=== PATIENT | female | born 1995 | race Caucasian/White ===

== ENCOUNTER 2016-12-01 17:16 | Inpatient (IN) | payer OTHER ==
[2016-12-01 17:41] LABS: URINE SOURCE CLEAN CATCH
[2016-12-01 17:55] LABS: BILIRUBIN URINE NEGATIVE (NEGATIVE); BLOOD URINE 4+ (NEGATIVE); CLARITY CLEAR (CLEAR); COLOR YELLOW; GLUCOSE URINE NEGATIVE (NEGATIVE); LEUKOCYTES URINE 2+ (NEGATIVE); NITRITE URINE NEGATIVE (NEGATIVE); PH URINE 6.5; PROTEIN URINE TRACE mg/dL (NEGATIVE); UROBILINOGEN URINE NORMAL
[2016-12-01 18:10] LABS: URINE CULTURE PL NEEDED? YES; URINE EPITHELIAL CELLS <10 /HPF (<10); URINE RBC TNTC /HPF (<10)
[2016-12-01] MEDS ORDERED: NS 1,000 ML IV ONE (18:48)
[2016-12-01] MEDS ORDERED: TYLENOL ONE (20:01)
[2016-12-01 20:04] LABS: BASO% 0.1 % (0.0-0.8); EOS# 0.02 X1000 (0.0-0.7); EOS% 0.1 % (0.0-10.0); HEMATOCRIT 39.1 % (37.0-47.0); HEMOGLOBIN 12.9 g/dL (12.0-16.0); IMM GRAN# 0.14 X1000 (0.0-0.04); IMM GRAN% 0.6 % (0.0-0.5); LYMPH# 1.25 X1000 (1.2-3.4); LYMPH% 5.4 % (20.5-51.1); MANUAL DIFF NEEDED? YES; MCH 28.4 PG (27-31); MCV 85.9 FL (81-99); MONO# 1.31 X1000 (0.11-0.59); MONO% 5.7 % (1.7-9.3); MPV 9.6 FL (7.4-10.4); NEUT% 88.1 % (42.2-75.2); PLT 335 X1000 (130-400); RBC 4.55 XMIL (4.2-5.4)
[2016-12-01 20:16] LABS: BANDS 9 % (0-1); LYMPHS 6 % (21-51); MONO 6 % (1-9)
[2016-12-01] MEDS ORDERED: ZOSYN 3.375 GM/NS 50 ML IV ONE (20:18)
[2016-12-01] MEDS ORDERED: VANCOMYCIN 1 GM/NS 250 ML IV ONE (20:18)
[2016-12-01] MEDS ORDERED: TYLENOL PO ONE (20:26)
--- NOTE | 2016-12-01 20:49 | PROVIDER DOCUMENTATION ---
HPI-Abdominal Pain/GI Problem - General Source: patient - History of Present Illness-ABD Nature of Presenting Problems: 21 Y/O F presents to ED with Post-op Complaint. Pt states she had a on Wednesday, woke up this morning with Abdominal cramping, and at home had a fever of 104 took 2 Tylenol and brought the fever down to 102. Pt took baby to pediatric appt today and Stated that she didn't feel very well and took her temp and her fever was 103. Abdominal Pain Onset Location: reports: generalized abdomen Pain Radiation: reports: no radiation Quality of Pain: reports: cramping Severity in ED: reports: severe Onset/Duration: reports: this morning Timing: reports: still present Activities at Onset: reports: none Associated Symptoms: reports: fever/chills. denies: diarrhea, nausea, vomiting <Vy Quinonez - Last Filed: 12/01/16 20:43> - History of Present Illness-ABD Nature of Presenting Problems: This pt presents today c complaints of fever and abdominal pain. She reports that she had a on Wednesday and this morning woke up c a fever of 105. She took tylenol and then went to her child's pediatric appointment. They actually rechecked her temp there and it was 102. She is complaining of pelvic pain and fatigue. Abdominal Pain Onset Location: reports: suprapubic Quality of Pain: reports: aching Severity in ED: reports: moderate Onset/Duration: reports: this morning Timing: reports: still present Modifying Factors: improves with: palpation Associated Symptoms: reports: fatigue, fever/chills, rash (pelvic) Last BM: 24 hours ago Dark Stools Present?: reports: none noticed Rectal Bleeding: reports: none Rectal Pain: reports: none Bruising or Bleeding Gums?: No Similar Symptoms Previously?: No Recently seen or treated by another doctor?: Yes () <Danny Garcia - Last Filed: 12/01/16 22:18> - General Chief Complaint: Post Op Complaint Stated Complaint: POST OP /11-25-16/FEVER Time Seen by Provider: 12/01/16 18:43 Allergies/Adverse Reactions: Patient Allergies Allergy/AdvReac Type Severity Reaction Status Date / Time No Known Allergies Allergy Verified 11/25/16 11:57 Home Medications: Home Medication List Medication Instructions Recorded Confirmed Last Taken Type Multivitamin [Gummi Bear 2 tab PO DAILY 11/25/16 11/25/16 11/24/16 22:00 History Multivitamin] Ranitidine HCl [Zantac] 1 tab PO DIRECTED 11/25/16 11/25/16 11/25/16 07:00 History Valacyclovir HCl [Valtrex] 1,000 mg PO DAILY 11/25/16 11/25/16 11/25/16 07:00 History Ibuprofen [Motrin] 800 mg PO Q8H PRN PRN #30 tablet 11/28/16 Unknown Rx Iron,Fm,Ps/Folic/B,C18/L.casei 1 cap PO BID #60 capsule 11/28/16 Unknown Rx [Fusion Plus Capsule] Oxycodone/APAP 10 mg/325 mg 1 each PO Q3-4H PRN PRN #60 tablet 11/28/16 Unknown Rx [Percocet-10] Sennosides/Docusate Sodium 1 each PO QHS #30 tablet 11/28/16 Unknown Rx [Pericolace] Review of Systems - Adult - REVIEW OF SYSTEMS - ADULT Constitutional: reports: chills, fever Eyes: reports: no symptoms reported Ears, Nose, Mouth & Throat: reports: no symptoms reported Cardiovascular: reports: no symptoms reported Respiratory: reports: no symptoms reported Gastrointestinal: reports: abdominal pain. denies: diarrhea, nausea, vomiting Genitourinary: reports: no symptoms reported Musculoskeletal: reports: no symptoms reported Integumentary: reports: no symptoms reported Neurological: reports: no symptoms reported Psychiatric: reports: no symptoms reported Endocrine: reports: no symptoms reported Hematologic/Lymphatic: reports: no symptoms reported Allergic/Immunologic: reports: no symptoms reported All Other Systems: Reviewed and Negative <Vy Quinonez - Last Filed: 12/01/16 20:43> - REVIEW OF SYSTEMS - ADULT Constitutional: reports: chills, fever, fatique. denies: night sweats, weight gain Eyes: reports: no symptoms reported. denies: discharge, dry eyes Ears, Nose, Mouth & Throat: reports: no symptoms reported. denies: ear discharge, ear pain Cardiovascular: reports: no symptoms reported. denies: chest pain, edema Respiratory: reports: no symptoms reported. denies: chronic cough, cough Gastrointestinal: reports: abdominal pain. denies: difficulty swallowing, nausea Genitourinary: reports: see HPI. denies: frequent UTI's, hematuria Musculoskeletal: reports: no symptoms reported. denies: bone pain, back pain Integumentary: reports: see HPI. denies: mole changes, nail changes Neurological: reports: no symptoms reported. denies: ataxia, dizziness/vertigo Psychiatric: reports: no symptoms reported. denies: anxiety, anti-depressant use Endocrine: reports: no symptoms reported Hematologic/Lymphatic: reports: no symptoms reported Allergic/Immunologic: reports: no symptoms reported All Other Systems: Reviewed and Negative <Danny Garcia - Last Filed: 12/01/16 22:18> Past History - Adult - PAST MEDICAL HISTORY-ADULT Review of Records: reports: Old Records Reviewed, Nursing Assessment Review, Medications Reviewed, Social history reviewed & non-contributory. - SOCIAL HISTORY Smoking: quit greater than 1 year Substance Use: none/never Alcohol Use Frequency: never Living Situation: family <[place] - Last Filed: 12/01/16 20:43> - PAST MEDICAL HISTORY-ADULT Review of Records: reports: Old Records Reviewed, Nursing Assessment Review, Medications Reviewed, Social history reviewed & non-contributory. Major Childhood Illnesses: reports: denies history Cardiovascular: reports: denies history Respiratory: reports: denies history Gastrointestinal: reports: denies history Obstetrical/Gynecological: reports: denies history Genitourinary: reports: denies history Musculoskeletal: reports: denies history Neurological: reports: denies history Endocrine/Immune: reports: denies history Other Conditions: reports: denies history <Danny Garcia - Last Filed: 12/01/16 22:18> Physical Exam-General - PHYSICAL EXAM-ADULT Initial Vital Signs Reviewed: Yes - CONSTITUTIONAL General Appearance: alert, moderate distress. negative: appears well - EYES Eyes: PERRL/EOMI, pink conjunctivae, fundi clear, no AV nicking - HEAD, EARS, NOSE, MOUTH & THROAT HENMT: normocephalic/atraumatic, moist mucous membranes, normal ENT inspection, TMs normal, pharynx normal - NECK Neck: non-tender, supple - RESPIRATORY Respiratory: chest non-tender, lungs clear, normal breath sounds - CARDIOVASCULAR Cardiovascular: tachycardia, other (hypotensive) - GASTROINTESTINAL (ABDOMEN) Abdominal Exam: tenderness (Abdominal wall) - LYMPHATIC Lymphatic: no adenopathy - MUSCULOSKELETAL Back Exam: normal inspection, no CVA tenderness, no vertebral tenderness Extremity: normal range of motion, non-tender - SKIN Integumentary: warm/dry. negative: normal color - NEUROLOGIC Neurologic: it risk advisor II-XII nml as tested - PSYCHIATRIC Psych/Mental Status: normal mood/affect, normal thought content, normal thought process, oriented x 3 <Vy Quinonez - Last Filed: 12/01/16 20:43> - PHYSICAL EXAM-ADULT Initial Vital Signs Reviewed: Yes - CONSTITUTIONAL General Appearance: alert, mild distress - EYES Eyes: PERRL/EOMI, pink conjunctivae - HEAD, EARS, NOSE, MOUTH & THROAT HENMT: normocephalic/atraumatic, moist mucous membranes, normal ENT inspection - NECK Neck: non-tender, full range of motion - RESPIRATORY Respiratory: chest non-tender, lungs clear, normal breath sounds - CARDIOVASCULAR Cardiovascular: normal peripheral pulses, tachycardia - GASTROINTESTINAL (ABDOMEN) Abdominal Exam: normal bowel sounds, soft, tenderness (suprapubic) - GENITOURINARY Female Genitalia/Pelvic Exam: other (cellulitis) - MUSCULOSKELETAL Back Exam: normal inspection Extremity: normal range of motion - SKIN Integumentary: normal turgor, warm/dry, pallor - NEUROLOGIC Neurologic: grossly normal, no motor/sensory deficits - PSYCHIATRIC Psych/Mental Status: normal mood/affect, normal thought content, normal thought process, oriented x 3 <Danny Garcia - Last Filed: 12/01/16 22:18> Progress - PLAN OF CARE/RESULTS Progress/Plan/Lab Results: Laboratory Tests 12/01/16 12/01/16 12/01/16 17:30 18:45 18:45 WBC 23.12 H RBC 4.55 Hgb 12.9 Hct 39.1 MCV 85.9 MCH 28.4 MCHC 33.0 RDW Std Deviation 18.2 H Plt Count 335 MPV 9.6 Immature Gran % (Auto) 0.6 H Neut % (Auto) 88.1 H Lymph % (Auto) 5.4 L [place] % (Auto) 5.7 Eos % (Auto) 0.1 Baso % (Auto) 0.1 Immature Gran # (Auto) 0.14 H Neut # (Auto) 20.38 H Lymph # (Auto) 1.25 [place] # (Auto) 1.31 H Eos # (Auto) 0.02 Baso # (Auto) 0.02 Segmented Neutrophils 79 H Band Neutrophils 9 H Lymphocytes 6 L Monocytes 6 PT INR APTT (Factor Assay) Sodium Potassium Chloride Carbon Dioxide Anion Gap BUN Creatinine Estimated GFR/1.73 m2 BUN/Creatinine Ratio Glucose Calculated Osmolality Calcium Magnesium Total Bilirubin AST ALT Alkaline Phosphatase Total Protein Albumin Globulin Albumin/Globulin Ratio Plasma Lactate 1.5 Urine Source CLEAN CATCH Urine Color YELLOW Urine Clarity CLEAR Urine pH 6.5 Ur Specific [place] 1.010 Urine Protein TRACE A Urine Ketones TRACE Urine Blood 4+ Urine Nitrite NEGATIVE Urine Bilirubin NEGATIVE Urine Urobilinogen NORMAL Urine Microscopic RBC TNTC A Urine WBC 2+ A Urine Microscopic WBC 10-20 A Ur Epithelial Cells <10 Urine Bacteria NEGATIVE Urine Glucose NEGATIVE 12/01/16 12/01/16 12/01/16 18:48 19:00 19:00 WBC RBC Hgb Hct MCV MCH MCHC RDW Std Deviation Plt Count MPV Immature Gran % (Auto) Neut % (Auto) Lymph % (Auto) [place] % (Auto) Eos % (Auto) Baso % (Auto) Immature Gran # (Auto) Neut # (Auto) Lymph # (Auto) [place] # (Auto) Eos # (Auto) Baso # (Auto) Segmented Neutrophils Band Neutrophils Lymphocytes Monocytes PT 13.9 INR 1.04 APTT (Factor Assay) 34.3 Sodium 134 L Potassium 3.5 Chloride 95 L Carbon Dioxide 21 L Anion Gap 18 BUN 9 Creatinine 0.7 Estimated GFR/1.73 m2 > 60 BUN/Creatinine Ratio 13 Glucose 91 Calculated Osmolality 267 Calcium 9.2 Magnesium 1.9 Total Bilirubin 0.50 AST 19 ALT 20 Alkaline Phosphatase 204 H Total Protein 7.6 Albumin 3.6 Globulin 4.0 Albumin/Globulin Ratio 1.0 Plasma Lactate Urine Source Urine Color Urine Clarity Urine pH Ur Specific [place] Urine Protein Urine Ketones Urine Blood Urine Nitrite Urine Bilirubin Urine Urobilinogen Urine Microscopic RBC Urine WBC Urine Microscopic WBC Ur Epithelial Cells Urine Bacteria Urine Glucose Orders Category Date Time Status Orthostatic Vital Signs NOW Care 12/01/16 18:48 Active Saline Loc NOW Care 12/01/16 18:[address] ABD/PELVIS W/ IV CONT ONLY [CT] Stat Exams 12/01/16 20:18 Taken BLOOD CULTURE [BLDCUL] Stat Lab 12/01/16 20:27 Ordered CBC WITH DIFF [HEME] Stat Lab 12/01/16 18:45 Completed COMPREHENSIVE METABOLIC PANEL [CHEM] Stat Lab 12/01/16 18:48 Completed LACTATE, PLASMA [CHEM] Stat Lab 12/01/16 18:45 Completed MAGNESIUM [CHEM] Stat Lab 12/01/16 19:00 Completed [address]IME WITH INR PL [COAG] Stat Lab 12/01/16 19:[address] [COAG] Stat Lab 12/01/16 19:00 Completed UA [URINALYSIS PL W/POSS RFLX CULT] [URINALYSIS] Stat Lab 12/01/16 17:30 Completed URINE CULTURE [RM] Routine Lab 12/01/16 18:10 Ordered 0.9% Sodium Chloride Inj [Ns] 1,000 ml Med 12/01/16 22:15 Active IV 125 mls/hr 0.9% Sodium Chloride Inj [Ns] 1,000 ml Med 12/01/16 18:48 Discontinued IV 999 mls/hr Acetaminophen [Tylenol] Med 12/01/16 20:01 Discontinued 1,000 mg .ROUTE .STK-MED ONE Acetaminophen [Tylenol] Med 12/01/16 20:26 Discontinued 1,000 mg PO NOW ONE Ibuprofen [Motrin] Med 12/01/16 21:30 Discontinued 800 mg PO NOW ONE Piperacil/Tazobact 3.375 gm/Ns [Zosyn 3.375 gm/Ns] 50 Med 12/01/16 20:18 Discontinued ml IV NOW Vancomycin 1 gm/Ns 250 ml Med 12/01/16 20:18 Discontinued IV NOW Vital Signs Temp Pulse Pulse Pulse Pulse Resp BP 12/01/16 21:30 101.8 F H 124 H 20 114/71 12/01/16 20:30 153 H 152 H 138 H 12/01/16 20:25 101.8 F H 128 H 20 98/56 12/01/16 17:21 97.5 F L 130 H 20 094/050 BP BP BP Pulse Ox 12/01/16 21:30 96 12/01/16 20:30 107/70 95/65 111/76 12/01/16 20:25 100 12/01/16 17:21 98 No Known Allergies Allergy (Verified 11/25/16 11:57) Multivitamin [Gummi Bear Multivitamin] 2 tab PO DAILY 11/25/16 Ranitidine HCl [Zantac] 1 tab PO DIRECTED 11/25/16 Valacyclovir HCl [Valtrex] 1,000 mg PO DAILY 11/25/16 Ibuprofen [Motrin] 800 mg PO Q8H PRN PRN #30 tablet 11/28/16 Iron,Fm,Ps/Folic/B,C18/L.casei [Fusion Plus Capsule] 1 cap PO BID #60 capsule Oxycodone/APAP 10 mg/325 mg [Percocet-10] 1 each PO Q3-4H PRN PRN #60 tablet Sennosides/Docusate Sodium [Pericolace] 1 each PO QHS #30 tablet 11/28/16 Laboratory 12/01/16 12/01/16 12/01/16 19:00 19:00 18:48 WBC RBC Hgb Hct MCV MCH MCHC RDW Std Deviation Plt Count MPV Immature Gran % (Auto) Neut % (Auto) Lymph % (Auto) [place] % (Auto) Eos % (Auto) Baso % (Auto) Immature Gran # (Auto) Neut # (Auto) Lymph # (Auto) [place] # (Auto) Eos # (Auto) Baso # (Auto) Segmented Neutrophils Band Neutrophils Lymphocytes Monocytes PT 13.9 INR 1.04 APTT (Factor Assay) 34.3 Sodium 134 L Potassium 3.5 Chloride 95 L Carbon Dioxide 21 L Anion Gap 18 BUN 9 Creatinine 0.7 Estimated GFR/1.73 m2 > 60 BUN/Creatinine Ratio 13 Glucose 91 Calculated Osmolality 267 Calcium 9.2 Magnesium 1.9 Total Bilirubin 0.50 AST 19 ALT 20 Alkaline Phosphatase 204 H Total Protein 7.6 Albumin 3.6 Globulin 4.0 Albumin/Globulin Ratio 1.0 Plasma Lactate Urine Source Urine Color Urine Clarity Urine pH Ur Specific [place] Urine Protein Urine Ketones Urine Blood Urine Nitrite Urine Bilirubin Urine Urobilinogen Urine Microscopic RBC Urine WBC Urine Microscopic WBC Ur Epithelial Cells Urine Bacteria Urine Glucose 12/01/16 12/01/16 12/01/16 18:45 18:45 17:30 WBC 23.12 H RBC 4.55 Hgb 12.9 Hct 39.1 MCV 85.9 MCH 28.4 MCHC 33.0 RDW Std Deviation 18.2 H Plt Count 335 MPV 9.6 Immature Gran % (Auto) 0.6 H Neut % (Auto) 88.1 H Lymph % (Auto) 5.4 L [place] % (Auto) 5.7 Eos % (Auto) 0.1 Baso % (Auto) 0.1 Immature Gran # (Auto) 0.14 H Neut # (Auto) 20.38 H Lymph # (Auto) 1.25 [place] # (Auto) 1.31 H Eos # (Auto) 0.02 Baso # (Auto) 0.02 Segmented Neutrophils 79 H Band Neutrophils 9 H Lymphocytes 6 L Monocytes 6 PT INR APTT (Factor Assay) Sodium Potassium Chloride Carbon Dioxide Anion Gap BUN Creatinine Estimated GFR/1.73 m2 BUN/Creatinine Ratio Glucose Calculated Osmolality Calcium Magnesium Total Bilirubin AST ALT Alkaline Phosphatase Total Protein Albumin Globulin Albumin/Globulin Ratio Plasma Lactate 1.5 Urine Source CLEAN CATCH Urine Color YELLOW Urine Clarity CLEAR Urine pH 6.5 Ur Specific [place] 1.010 Urine Protein TRACE A Urine Ketones TRACE Urine Blood 4+ Urine Nitrite NEGATIVE Urine Bilirubin NEGATIVE Urine Urobilinogen NORMAL Urine Microscopic RBC TNTC A Urine WBC 2+ A Urine Microscopic WBC 10-20 A Ur Epithelial Cells <10 Urine Bacteria NEGATIVE Urine Glucose NEGATIVE - CT/MRI 1 CT Study: Abdomen, Pelvis CT Results: possible infected hematoma at surgical site - CONSULTS/PCP/HOSPITALIST Notification #1 *Consult/PCP/Hospitalist*: Dr. Proctor Time Discussed: 22:17 Consult Disposition: Admit (Will come and see pt brad) <Danny Garcia - Last Filed: 12/01/16 22:18> Departure <Vy Quinonez - Last Filed: 12/01/16 20:43> - Departure Time of Disposition Order: 22:18 Certified Medical Emergency: Emergent <Danny Garcia - Last Filed: 12/01/16 22:18> - Departure DIAGNOSIS: Infected hematoma following procedure, Postsurgical fever, Status post C- section Disposition: ADMITTED INPATIENT 09 Condition: Stable Attestation - Scribe Verification/Attestation Scribe:: Vy Quinonez Acting as Scribe for:: Diego Soto Scribe documention review:: This chart was documented by a scribe and accurately reflects the service the provider performed and the decisions made by the provider. - Physician/ SAMANTHA Attestation Patient care was provided by Advanced Practice Provider:: Yes Advanced Practice Provider:: Danny Garcia Advanced Practice Provider documentation review:: The Mid-level provider documentation, treatment plan and medical decision making was reviewed by the physician who agrees with all treatment and medical decision making by the MLP. <Vy Quinonez - Last Filed: 12/01/16 20:43> - Physician/ SAMANTHA Attestation Patient care was provided by Advanced Practice Provider:: Yes Advanced Practice Provider:: Danny Garcia Advanced Practice Provider documentation review:: The Mid-level provider documentation, treatment plan and medical decision making was reviewed by the physician who agrees with all treatment and medical decision making by the MLP. <Danny Garcia - Last Filed: 12/01/16 22:18> Physician Attestation
[2016-12-01 21:03] LABS: INR 1.04 (0.86-1.15); PROTIME 13.9 Seconds (12.1-15.5)
[2016-12-01 21:04] LABS: PTT PL 34.3 Seconds (22.6-43.9)
[2016-12-01 21:22] LABS: AGAP 18; ALBUMIN 3.6 g/dL (3.5-5.0); ALKALINE PHOSPHATASE 204 U/L (32-104); BUN 9 mg/dL (8-22); CALCIUM 9.2 mg/dL (8.8-10.2); CHLORIDE 95 mmol/L (98-107); COSMO 267; GOT 19 U/L (10-30); GPT 20 U/L (10-36); POTASSIUM 3.5 mmol/L (3.5-5.1); SODIUM 134 mmol/L (136-145); TCO2 21 mmol/L (25-35); TOTAL PROTEIN 7.6 g/dL (6.3-8.3)
[2016-12-01] MEDS: MOTRIN PO ONE (21:30)
[2016-12-01] MEDS: NS 1,000 ML IV SCH (22:15)
[2016-12-01] MEDS ORDERED: ZOFRAN IV PRN (22:18)
[2016-12-02] MEDS ORDERED: ZOSYN 3.375 GM/NS 50 ML ONE ×2 (04:01→10:55)
[2016-12-02] MEDS: ZOSYN 3.375 GM/NS 50 ML IV SCH ×4 (04:38→21:03)
[2016-12-02] MEDS: MORPHINE IV PRN ×3 (04:40→19:08)
[2016-12-02 06:37] LABS: BASO% 0.2 % (0.0-0.8); EOS# 0.09 X1000 (0.0-0.7); EOS% 0.4 % (0.0-10.0); HEMOGLOBIN 10.7 g/dL (12.0-16.0); IMM GRAN# 0.08 X1000 (0.0-0.04); IMM GRAN% 0.4 % (0.0-0.5); LYMPH# 0.78 X1000 (1.2-3.4); LYMPH% 3.9 % (20.5-51.1); MANUAL DIFF NEEDED? YES; MCH 29.2 PG (27-31); MCHC 33.4 g/dL (33-37); MCV 87.4 FL (81-99); MPV 9.2 FL (7.4-10.4); NEUT% 88.1 % (42.2-75.2); PLT 251 X1000 (130-400); RBC 3.66 XMIL (4.2-5.4)
--- NOTE | 2016-12-02 07:22 | HISTORY AND PHYSICAL ---
CHIEF COMPLAINT: Fever and abdominal pain. HISTORY OF PRESENT ILLNESS: History was obtained from the patient, her , and patient's mother. Irasema underwent a primary low uterine transverse on November 25 at 35 weeks and 6 days secondary to rupture of membranes and labor with breech presentation. She delivered a 6 pound 5 ounce baby girl and did well. She had a known left ovarian cyst and this was also commented on during the operative note, that was measuring approximately 5-6 cm. The patient stayed in the hospital until the when she was discharged home. Per the mother, the patient had been feeling very tired and not overall herself but today the patient was taking the daughter to the professional benefits sales consultant and she had her temperature taken at the office following an elevated temperature at home today. The temperatures have ranged anywhere from 102-105 throughout the day. She had some response to Tylenol and Motrin. The patient denies any body aches, cough, or upper respiratory infection. She does state that she has abdominal pain near the incisions site that the mother had commented on was very bruised previously. The bruise is now turning yellow. The patient specifically denies any foul-smelling lochia. No nausea, vomiting, constipation, or diarrhea. She is breast-feeding without difficulty. She has no other complaints at this time. PAST MEDICAL HISTORY: 1. Significant for herpes simplex virus. 2. A remote history of depression for which she used to take Zoloft. PAST SURGICAL HISTORY: 1. She had her wisdom tooth removed. 2. She had a primary low uterine transverse on 11/25/2016 for the above-noted reasons. ALLERGIES: She has no known drug allergies. 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 MEDICATIONS: She is taking vitamins and iron, an antacid pill, and she is taking Percocet, Motrin, and Tylenol at home. FAMILY HISTORY: Significant for breast cancer in maternal grandmother. Lung cancer in paternal grandfather and heart disease in maternal grandfather. SOCIAL HISTORY: She lives with her and her daughter. She did not drink during but she has occasional wine when not . No drug use. She denied smoking. However, her chart lists her as a former smoker. 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 REVIEW OF SYSTEMS: Negative except as noted above. PHYSICAL EXAMINATION: CURRENT VITAL SIGNS: Temperature 101.8 degrees, heart rate 124, respiratory rate 20, blood pressure 114/71, O2 saturation is 96% on room air. GENERAL: Patient is awake, alert, and oriented. In no acute distress. HEENT: Normocephalic, atraumatic. CHEST: Clear to auscultation bilaterally. CARDIOVASCULAR: Tachycardic but regular rhythm. ABDOMEN: Soft. She does have tenderness in the lower aspect of her pelvis, left greater than right. The uterus is firm and nontender. Incision, Pfannenstiel, is healing well. She has an area of induration that extends from approximately 1-1/2 to 2 cm above the incision to approximately 3-4 cm below the incision. There is evidence of old hematoma. Skin is a little bit purple but mostly yellow in this area. She does also have an area of hardness on her left rectus/flank that is tender to palpation. She has no rebound or guarding. PELVIC: Examination was deferred. EXTREMITIES: There is no clubbing, cyanosis, or edema. CURRENT LABORATORY VALUES: White count is 23.12, hemoglobin 12.9, hematocrit 39.1, platelets are 335,000. Coagulations are within normal limits, PT, PTT, and INR. CMP is significant for a sodium of 134, chloride of 95, potassium is 3.5, creatinine is 0.7. Alkaline phosphatase is 204. LFTs are normal. A clean-catch urine showed trace protein, many red blood cells, 2+ white blood cells. Patient will have lochia. There is a CAT scan. CT preliminary read showed a 5.4 cm left ovarian cyst, enlarged uterus, postsurgical changes in the anterior pelvic wall with subcutaneous fluid and gas bubbles, probably hematoma but could be infected, small bilateral pleural effusions, mild constipation, possible mild ileus. ASSESSMENT AND PLAN: Ms. Parsons is a 21-year-old, 1, para 0-1-0-1 who is postoperative day 6 following a primary low uterine transverse section for breech, in labor. Fever, is likely emanating from the probable infected abdominal wall hematoma. We will admit her for intravenous fluids and intravenous antibiotics. Plan to recheck a CBC with differential in the morning. The patient clinically looks stable right now. Continue her intravenous fluids and monitor her tachycardia. Her lactate was within normal limits in the emergency room. I did briefly discuss the possibility of an evacuation of hematoma but would currently attempt conservative measures first. The patient has been placed on vancomycin and Zosyn. Advised her that it would be okay for her to breastfeed and pump. We will follow up on blood cultures and reassess in the morning.
[2016-12-02] MEDS: TYLENOL PO PRN (07:58)
[2016-12-02] MEDS: NS 1,000 ML IV SCH ×2 (08:02→18:16)
[2016-12-02 09:06] LABS: BANDS 4 % (0-1); LYMPHS 4 % (21-51); MONO 6 % (1-9)
[2016-12-02] MEDS: VANCOMYCIN 1 GM/NS 250 ML IV SCH ×2 (09:11→21:05)
[2016-12-02] MEDS: MOTRIN PO ONE (09:29)
--- NOTE | 2016-12-02 09:45 | Diag Imaging Result Document ---
PROCEDURE NAME: CT ABD/PELVIS W/ IV CONT ONLY - 12/01/2016 CT SCAN OF THE ABDOMEN AND PELVIS WITH IV CONTRAST: INDICATION: Postop section on 11/25/2016. 23,000 white count, abdomen pain, and fever. FINDINGS: There is mild constipation and probable mild small bowel ileus. There is a 5.8 cm left ovarian cyst. The lower anterior abdominal wall demonstrates soft tissue stranding and gas bubbles as well as subcutaneous fluid collection measuring 8.4 x 2 cm. This could represent hematoma, seroma, or abscess. There are also low attenuation areas within the rectus muscles which could also represent hematoma, seroma, or abscesses. No thick enhancing valiente are appreciated. There are small bilateral pleural effusions. The uterus is enlarged consistent with state. The remainder of the solid visceral organs are unremarkable. There are prominent bilateral inguinal lymph nodes. IMPRESSION: 1. Soft tissue stranding, fluid collection, and gas bubbles in the lower anterior abdominal wall which could represent postop change or cellulitis and abscess. Correlate clinically. 2. Low attenuation areas within the rectus muscles could also represent hematoma or abscess. 3. Large left ovarian cyst. 4. uterus. 5. Small bilateral pleural effusions. Preliminary interpretation was given by the on-call radiologist.
[2016-12-02] MEDS: MOTRIN PO PRN (18:22)
[2016-12-02 21:33] LABS: BASO% 0.1 % (0.0-0.8); EOS% 0.9 % (0.0-10.0); HEMATOCRIT 29.7 % (37.0-47.0); HEMOGLOBIN 9.9 g/dL (12.0-16.0); IMM GRAN% 0.4 % (0.0-0.5); LYMPH# 1.28 X1000 (1.2-3.4); LYMPH% 5.6 % (20.5-51.1); MANUAL DIFF NEEDED? YES; MCH 28.8 PG (27-31); MCHC 33.3 g/dL (33-37); MCV 86.3 FL (81-99); MONO% 4.8 % (1.7-9.3); MPV 9.1 FL (7.4-10.4); NEUT% 88.2 % (42.2-75.2); PLT 251 X1000 (130-400); RBC 3.44 XMIL (4.2-5.4)
[2016-12-02 22:09] LABS: BANDS 7 % (0-1); EOS 1 % (1-10); LYMPHS 10 % (21-51); MONO 2 % (1-9)
[2016-12-03] MEDS: ZOSYN 3.375 GM/NS 50 ML IV SCH ×4 (03:55→20:05)
[2016-12-03] MEDS: TYLENOL PO PRN ×2 (04:01→13:39)
[2016-12-03] MEDS: NS 1,000 ML IV SCH ×3 (04:57→14:42)
[2016-12-03 07:08] LABS: BASO% 0.1 % (0.0-0.8); EOS# 0.24 X1000 (0.0-0.7); HEMATOCRIT 32.1 % (37.0-47.0); HEMOGLOBIN 10.6 g/dL (12.0-16.0); IMM GRAN# 0.09 X1000 (0.0-0.04); IMM GRAN% 0.4 % (0.0-0.5); LYMPH# 1.48 X1000 (1.2-3.4); LYMPH% 6.1 % (20.5-51.1); MANUAL DIFF NEEDED? YES; MCH 28.6 PG (27-31); MCV 86.8 FL (81-99); MONO# 1.06 X1000 (0.11-0.59); MONO% 4.4 % (1.7-9.3); MPV 9.5 FL (7.4-10.4); PLT 316 X1000 (130-400)
[2016-12-03 07:42] LABS: BANDS 5 % (0-1); LYMPHS 4 % (21-51); MONO 2 % (1-9)
[2016-12-03] MEDS: VANCOMYCIN 1 GM/NS 250 ML IV SCH ×2 (09:37→21:03)
[2016-12-03] MEDS: MYLICON PO PRN (12:23)
[2016-12-03] MEDS: MOTRIN PO PRN (14:39)
[2016-12-03] MEDS ORDERED: MORPHINE IV PRN (15:43)
[2016-12-03] MEDS ORDERED: NS 1,000 ML IV SCH (15:45)
--- NOTE | 2016-12-03 17:05 | PROGRESS NOTE ---
DATE: 12/03/2016 SUBJECTIVE: Hospital day 3. Antibiotic day 3, vancomycin and Zosyn. Temperature maximum 100.6. Other vital signs stable. Patient states feeling better. Has been ambulating, voiding, is hungry, desires to eat. PHYSICAL EXAM: Pertinent: Her incision is tense. There is erythema on the surrounding skin. There is a small opening. I expressed draining bloody purulent material. Approximately 60 to 100 mL is expressed. There is no odor to it. Plus 2 lower extremity edema. Blood cultures are negative. White count is stable at 24,000. Wound culture: Apparently wound opened last night. Cultures were done. Shows gram-positive cocci. No further distinguishing information available. ASSESSMENT AND PLAN: I have discussed case with Infectious Disease. Agree with antibiotics. Consider opening incision or possible CT scan to see if there is another source. Right now will continue with present management.
[2016-12-04] MEDS: MOTRIN PO PRN ×3 (02:56→20:24)
[2016-12-04] MEDS: ZOSYN 3.375 GM/NS 50 ML IV SCH ×4 (02:56→20:16)
[2016-12-04 05:55] LABS: BASO% 0.1 % (0.0-0.8); EOS# 0.26 X1000 (0.0-0.7); EOS% 1.3 % (0.0-10.0); HEMATOCRIT 29.9 % (37.0-47.0); HEMOGLOBIN 9.7 g/dL (12.0-16.0); IMM GRAN# 0.13 X1000 (0.0-0.04); IMM GRAN% 0.7 % (0.0-0.5); LYMPH# 1.37 X1000 (1.2-3.4); LYMPH% 7.1 % (20.5-51.1); MANUAL DIFF NEEDED? YES; MCH 27.9 PG (27-31); MCHC 32.4 g/dL (33-37); MCV 85.9 FL (81-99); MONO# 0.75 X1000 (0.11-0.59); MONO% 3.9 % (1.7-9.3); MPV 9.9 FL (7.4-10.4); NEUT% 86.9 % (42.2-75.2); PLT 328 X1000 (130-400); RBC 3.48 XMIL (4.2-5.4)
[2016-12-04 07:52] LABS: BANDS 4 % (0-1); LYMPHS 6 % (21-51); MONO 6 % (1-9)
[2016-12-04 07:53] LABS: HYPOCHROM OCCASIONAL
[2016-12-04] MEDS: BENADRYL PO SCH ×2 (10:12→20:24)
[2016-12-04] MEDS: VANCOMYCIN 1 GM/NS 250 ML IV SCH ×2 (10:12→21:59)
[2016-12-04] MEDS: PEPCID PO SCH (10:13)
[2016-12-04] MEDS: MYLICON PO PRN (13:19)
[2016-12-05] MEDS: ZOSYN 3.375 GM/NS 50 ML IV SCH ×2 (03:57→10:15)
[2016-12-05 06:16] LABS: BASO% 0.5 % (0.0-0.8); EOS# 0.24 X1000 (0.0-0.7); EOS% 2.4 % (0.0-10.0); HEMATOCRIT 28.7 % (37.0-47.0); HEMOGLOBIN 9.8 g/dL (12.0-16.0); IMM GRAN# 0.28 X1000 (0.0-0.04); IMM GRAN% 2.8 % (0.0-0.5); LYMPH# 1.87 X1000 (1.2-3.4); LYMPH% 18.7 % (20.5-51.1); MANUAL DIFF NEEDED? YES; MCH 28.9 PG (27-31); MCHC 34.1 g/dL (33-37); MCV 84.7 FL (81-99); MONO# 0.91 X1000 (0.11-0.59); MONO% 9.1 % (1.7-9.3); MPV 9.7 FL (7.4-10.4); NEUT% 66.5 % (42.2-75.2); PLT 338 X1000 (130-400); RBC 3.39 XMIL (4.2-5.4)
[2016-12-05 06:45] LABS: BANDS 0 % (0-1); LYMPHS 18 % (21-51); MONO 12 % (1-9)
[2016-12-05] MEDS ORDERED: SODIUM CHLORIDE 0.9% 10 ML ONE (08:51)
[2016-12-05] MEDS: BENADRYL PO SCH (09:00)
[2016-12-05] MEDS ORDERED: PEPCID PO ONE (09:00)
[2016-12-05] MEDS ORDERED: LR 1,000 ML IV SCH (09:00)
[2016-12-05] MEDS: PEPCID PO SCH (09:02)
[2016-12-05] MEDS ORDERED: FENTANYL ONE (09:11)
[2016-12-05] MEDS ORDERED: DIPRIVAN 1% ONE (09:11)
[2016-12-05] MEDS ORDERED: PHENERGAN ONE (09:12)
[2016-12-05] MEDS ORDERED: MORPHINE ONE (09:12)
[2016-12-05] MEDS ORDERED: XYLOCAINE-MPF 1% 5 ML ONE (09:12)
[2016-12-05] MEDS ORDERED: VERSED ONE (09:21)
[2016-12-05] MEDS ORDERED: LR 1,000 ML ONE (10:11)
[2016-12-05] MEDS ORDERED: AMBIEN PO PRN (10:53)
[2016-12-05] MEDS ORDERED: SALINE LOCK IV FLUID XX ONE (11:10)
[2016-12-05] MEDS ORDERED: MORPHINE IV PRN (11:15)
[2016-12-05] MEDS ORDERED: ZOFRAN IV PRN (11:17)
[2016-12-05] MEDS: PERCOCET-10 PO PRN ×3 (12:07→20:03)
[2016-12-05] MEDS: SEPTRA DS PO SCH (12:07)
[2016-12-05] MEDS: DOXYCYCLINE PO SCH (12:08)
[2016-12-05] MEDS: VANCOMYCIN 1 GM/NS 250 ML IV SCH (12:30)
--- NOTE | 2016-12-05 12:57 | OPERATIVE NOTE ---
PROCEDURE DATE: 12/05/2016 SURGEON: Zev Bishop MD ANESTHESIA: General. OPERATION PERFORMED: Incision and drainage of wound abscess. PREOPERATIVE DIAGNOSIS: Wound abscess. POSTOPERATIVE DIAGNOSIS: Wound abscess. FINDINGS: There was a 10 cm or greater pocket that tracked superior and to the left of the incision on the left side. DETAILS OF OPERATION: Patient was taken back to the operating room and after general anesthesia, was placed in the supine position. The abdomen was prepped draped in usual fashion. A Alia forceps was used to open the incision on the left side. A small amount of purulent material was extracted. We then irrigated the abscess pocket with approximately 1 mL of saline. The Lucian- Shepard drain was then placed in the abscess pocket and was secured with nylon sutures. The patient was then extubated and went to the recovery room in stable condition. We will continue on vancomycin and I will stop Zosyn. We will start p.o. Bactrim DS and tetracycline as it is sensitive to those. I will consult wound nurse for continuous suction on the KVNG drainage.
[2016-12-06] MEDS: HEMOCYTE PLUS CAPSULE PO SCH ×3 (00:09→20:28)
[2016-12-06] MEDS: DOXYCYCLINE PO SCH ×3 (00:09→20:28)
[2016-12-06] MEDS: BENADRYL PO SCH ×3 (00:09→20:28)
[2016-12-06] MEDS: SEPTRA DS PO SCH ×3 (00:09→20:28)
[2016-12-06] MEDS: PERCOCET-10 PO PRN ×6 (00:09→20:28)
[2016-12-06] MEDS: VANCOMYCIN 1 GM/NS 250 ML IV SCH ×2 (00:10→11:37)
[2016-12-06 06:18] LABS: BASO% 0.8 % (0.0-0.8); EOS# 0.24 X1000 (0.0-0.7); EOS% 2.4 % (0.0-10.0); HEMATOCRIT 29.6 % (37.0-47.0); HEMOGLOBIN 9.9 g/dL (12.0-16.0); IMM GRAN# 0.65 X1000 (0.0-0.04); IMM GRAN% 6.4 % (0.0-0.5); LYMPH% 22.7 % (20.5-51.1); MANUAL DIFF NEEDED? YES; MCH 28.4 PG (27-31); MCHC 33.4 g/dL (33-37); MCV 85.1 FL (81-99); MONO# 1.03 X1000 (0.11-0.59); MONO% 10.2 % (1.7-9.3); MPV 9.5 FL (7.4-10.4); NEUT% 57.5 % (42.2-75.2); PLT 359 X1000 (130-400); RBC 3.48 XMIL (4.2-5.4)
[2016-12-06 07:40] LABS: BANDS 1 % (0-1); LYMPHS 15 % (21-51); MONO 4 % (1-9)
[2016-12-06] MEDS ORDERED: VASELINE TOP ONE (08:57)
[2016-12-07] MEDS: PERCOCET-10 PO PRN ×3 (00:26→11:31)
[2016-12-07 06:36] LABS: BASO% 0.6 % (0.0-0.8); EOS# 0.23 X1000 (0.0-0.7); EOS% 2.2 % (0.0-10.0); HEMATOCRIT 32.6 % (37.0-47.0); HEMOGLOBIN 10.7 g/dL (12.0-16.0); IMM GRAN# 0.57 X1000 (0.0-0.04); IMM GRAN% 5.5 % (0.0-0.5); LYMPH# 2.08 X1000 (1.2-3.4); MANUAL DIFF NEEDED? YES; MCHC 32.8 g/dL (33-37); MCV 85.3 FL (81-99); MONO# 0.91 X1000 (0.11-0.59); MONO% 8.8 % (1.7-9.3); MPV 9.6 FL (7.4-10.4); NEUT% 62.9 % (42.2-75.2); PLT 387 X1000 (130-400); RBC 3.82 XMIL (4.2-5.4)
[2016-12-07 07:41] LABS: EOS 1 % (1-10); LYMPHS 17 % (21-51); MONO 8 % (1-9)
[2016-12-07 07:53] VITALS: BP 166/66
[2016-12-07] MEDS: SEPTRA DS PO SCH (08:55)
[2016-12-07] MEDS: DOXYCYCLINE PO SCH (08:55)
[2016-12-07] MEDS: HEMOCYTE PLUS CAPSULE PO SCH (08:55)
[2016-12-07] MEDS: BENADRYL PO SCH (11:31)
--- NOTE | 2016-12-08 05:47 | DISCHARGE SUMMARY ---
ADMISSION DATE: 12/01/2016 DISCHARGE DATE: 12/07/2016 ADMITTING DIAGNOSES: 1. Postoperative day #7, status post primary section at 35 weeks. 2. Postoperative wound infection. DISCHARGE DIAGNOSES: 1. Postoperative day #7, status post primary section at 35 weeks. 2. Postoperative wound infection. 3. Postoperative day #2, status post incision and drainage of wound infection. HISTORY OF PRESENT ILLNESS: Patient is a 21-year-old G1, P0-1-0-1, who presented to the emergency room on postoperative day #7, status post primary delivery with complaints of fever and not feeling well. During the evaluation, the patient was noted to have a subcutaneous fluid collection. Patient is febrile on arrival with a white count of 23, so the patient was admitted for management of wound infection. Patient was started on vancomycin and Zosyn; however, was noted to have persistent erythema so on hospital day #5 the patient was taken to the operating room for washout of infected wound incision. Intraoperatively, she was noted to have a 10x10 cm abscess and KVNG drain was placed. Postoperatively, the patient remained afebrile. The patient with white count decreasing to 10 and on postoperative day #2, after consultation with wound care, the patient was felt to be stable for discharge home. DISCHARGE DISPOSITION: The patient is discharged home. PRIMARY PROCEDURE: Incision and drainage of wound infection, with placement of Lucian-Shepard drain. Will discharge patient home on Bactrim and doxycycline. We will have the patient follow up in 2 days for drain check. Parameters given for patient to follow up or call with questions or concerns.
== END 2016-12-07 16:30 | disposition home or self-care (01) | DRG 776 ==
LOC: P.ED 17:16 → P.WC 17:17
PROVIDERS: ADMIT Obstetrics & Gynecology; ATTEND Obstetrics & Gynecology
DX: O86.0 Infection of obstetric surgical wound (principal); O98.53 Other viral diseases complicating the puerperium; B00.9 Herpesviral infection, unspecified; O90.89 Other complications of the puerperium, not elsewhere classified; N83.202 Unspecified ovarian cyst, left side; B95.62 Methicillin resistant Staphylococcus aureus infection as the cause of diseases classified elsewhere; Z87.891 Personal history of nicotine dependence; Z80.3 Family history of malignant neoplasm of breast; Z80.1 Family history of malignant neoplasm of trachea, bronchus and lung; Z82.49 Family history of ischemic heart disease and other diseases of the circulatory system; Z79.899 Other long term (current) drug therapy
CPT/HCPCS: 36415; 74177; 80053; 81001; 83605; 83735; 85025; 85610; 85730; 87040; 87070; 87077; 87088; 87186; 94799; 96361; 96365; 96368; J2250; J2270; J2405; J2543; J2550; J3010; J3370; J7030; J7120; Q9967